=== PATIENT | female | born 1960 | race Caucasian/White ===

== ENCOUNTER 2018-11-15 20:44 | Emergency (ER) | payer OTHER, MEDICAID ==
[~2018-11-15] VITALS: Ht 165.1 cm; Wt 113.4 kg
[2018-11-15 22:50] LABS: Basophils # (auto) 0.1 uL; Basophils % (auto) 0.8 % (0.0-2.0); Eosinophils # (auto) 0.3 uL; Hematocrit 40.8 % (36.0-46.0); Hemoglobin 13.7 g/dL (12.2-16.2); Lymphocytes # (auto) 1.9 uL; Lymphocytes % (auto) 21.7 % (10.0-50.0); Mean Corpuscular Hgb Conc. 33.4 g/dL (32.0-36.0); Mean Corpuscular Volume 89.7 fL (80.0-100.0); Monocytes # (auto) 0.6 uL; Monocytes % (auto) 7.1 % (0.0-12.0); Neutrophils % (auto) 67.4 % (37.0-80.0); Platelet Count (auto) 304 10^3/uL (140-450); Red Blood Cells 4.55 10^6/uL (4.0-5.20); Red Cell Distribution Width 15.9 % (11.8-14.3); White Blood Cell 8.9 10^3/uL (4.4-10.8)
[2018-11-15 22:59] LABS: Albumin 3.8 g/dL (3.4-5.0); BUN/Creatinine Ratio 19.3; Potassium 4.2 mmol/L (3.5-5.1)
[2018-11-15 23:01] LABS: Bilirubin, Total 0.4 mg/dL (0.2-1.0); Total Protein 7.2 g/dL (6.4-8.2)
[2018-11-16] MEDS ORDERED: SULFAMETHOX W/TRIMETH(800/160MG) DS TAB PO ONE (06:45)
[2018-11-16 06:47] VITALS: BP 132/77
== END 2018-11-16 06:58 | disposition home or self-care (01) ==
LOC: ER 20:59
DX: L03.115 Cellulitis of right lower limb (principal); M79.661 Pain in right lower leg; I10 Essential (primary) hypertension; E78.5 Hyperlipidemia, unspecified
CPT/HCPCS: 36415; 73590; 80053; 85025; 87040

== ENCOUNTER 2024-01-19 08:02 | Emergency (ER) | payer OTHER ==
[~2024-01-19] VITALS: Ht 165.1 cm; Wt 105.7 kg
[2024-01-19 08:57] VITALS: BP 132/72; PULSE 68; RESP 18; TEMP 98; O2SAT 97
[2024-01-19] MEDS ORDERED: IBUP-1455 PO (09:26)
--- NOTE | 2024-01-19 09:27 | ED.PDOC ---
Musculoskeletal HPI Comments 63-year-old female complaining of right shoulder pain for the last four months. States she went to her primary care doctor and was told she needed a CT scan. She went to go get the CT scan done but was denied because she did not have a valid ID. Patient states no significant trauma four months ago. Nothing makes it better, movement makes it worse. Chief Complaint: Upper Extremity Time Seen by MD: 09:05 Primary Care Provider: Debbie Reviewed Notes: Nurses Notes Allergies: Coded Allergies: Codeine (Verified Allergy, Unknown, 01/19/24) Information Source: Patient Mode of Arrival: Ambulatory Location: Right Extremity Location: Shoulder Past Medical History PAST MEDICAL HISTORY: High Lipids, HTN Surgical History: Denies all surgeries HAY STACKER History: No Pertinent HAY STACKER History Family History Family History: Family hx of DM, Family hx of heart alberto Social History Smoker: Non-Smoker Alcohol: Denies ETOH Use Drugs: Denies Drug Use Lives In: Home Constitutional: denies: chills, diaphoresis, fatigue, fever, malaise, sweats, weakness, others EENTM: denies: blurred vision, double vision, ear bleeding, ear discharge, ear drainage, ear pain, ear ringing, eye pain, eye redness, hearing loss, mouth pain, mouth swelling, nasal discharge, nose bleeding, nose congestion, nose pain, photophobia, tearing, throat pain, throat swelling, voice changes, others Respiratory: denies: cough, hemoptysis, orthopnea, SOB at rest, shortness of breath, SOB with excertion, stridor, wheezing, others Cardiovascular: denies: chest pain, dizzy spells, diaphoresis, Dyspnea on exertion, edema, irregular heart beat, left arm pain, lightheadedness, palpitations, PND, syncope, others Gastrointestinal: denies: abdomen distended, abdominal pain, blood streaked bowels, constipated, diarrhea, dysphagia, difficulty swallowing, hematemesis, melena, nausea, poor appetite, poor fluid intake, rectal bleeding, rectal pain, vomiting, others Genitourinary: denies: abnormal vagina bleeding, burning, dyspareunia, dysuria, flank pain, frequency, hematuria, incontinence, pain, , vagina discha rge, urgency, others Neurological: denies: dizziness, fainting, headache, left sided numbness, left sided weakness, numbness, paresthesia, pre-existing deficit, right sided numbness, right sided weakness, seizure, speech problems, tingling, tremors, weakness, others Musculoskeletal: reports: joint pain (Right shoulder); denies: back pain, gout, joint swelling, muscle pain, muscle stiffness, neck pain, others Integumetry: denies: bruises, change in color, change in hair/nails, dryness, laceration, lesions, lumps, rash, wounds, others Allergic/Immunocompromised: denies: Difficulty Healing, Frequent Infections, Hives, Itching, others Physical Exam General Appearance: No Apparent Distress, Normal HEENT: Normal ENT Inspection, Pharynx Normal, TMs Normal Neck: Full Range of Motion, Non-Tender, Normal, Normal Inspection Respiratory: Chest Non-Tender, Lungs Clear, No Accessory Muscle Use, No Respiratory Distress, Normal Breath Sounds Cardiovascular: No Edema, No JVD, No Murmur, No Gallop, Normal Peripheral Pulses, Regular Rate/Rhythm Breast Exam: Deferred Gastrointestinal: No Organomegaly, Non Tender, No Pulsatile Mass, Normal Bowel Sounds, Soft Genitalia: Deferred Pelvic: Deferred Rectal: Deferred Extremities: No calf tenderness, Normal capillary refill, No pedal edema Musculoskeletal : Location: Right Extremity Location: Shoulder (Tender to palpation over the anterior and posterior deltoid. Limited range of motion of the right shoulder due to pain. No obvious crepitus noted.) Apperance: Normal Neurologic: Alert, animal trainer II-XII nml as Tested, No Motor Deficits, Normal Affect, Normal Mood, No Sensory Deficits Cerebellar Function: Normal Reflexes: Normal Skin: Dry, Normal Color, Warm Lymphatic: No Adenopathy Was a procedure done? Was a procedure done?: No Differential Diagnosis EXT Differential Diagnosis: Cellulitis, Fracture, Dislocation, Gout, Rheumatoid X-Ray, Labs, Meds, VS Vital Signs Date Time Temp Pulse Resp B/P (MAP) Pulse Ox O2 Delivery O2 Flow Rate FiO2 01/19/24 08:57 68 18 97 Room Air 01/19/24 08:57 98.0 68 18 132/72 (92) 97 98.0 01/19/24 08:28 98.0 68 18 132/72 (92) 97 X-Ray, Labs, Meds, VS Comment Imaging: X-rays and CT scans were reviewed and interpreted by this provider, imaging shows no fractures and no pathological disease. Pending radiology review. Laboratory: Labs reviewed and interpreted by this provider. No significant abnormalities noted. Patient has prior medical visits reviewed. Med reconciliation performed Vital signs reviewed Patient advised she was follow up with the PCP for contract specialist referral. Patient verbalized understanding. Patient was sent home with ibuprofen 800 for pain relief. Time of 1ST Reevaluation: 09:26 Reevaluation 1ST: Improved Patient Education/Counseling: Diagnosis, Treatment, Need For Follow Up (Patient advised to follow-up in the emergency room in the next 24 to 48 hours if symptoms do not improve. Advised follow-up with PCP in the next 3 to 5 days. Patient verbalized understanding. ) Family Education/Counseling: Diagnosis Departure 1 Departure Time of Disposition: 09:25 Impression: Primary Impression: Arthralgia Qualified Codes: M25.511 - Pain in right shoulder Additional Impression: Right shoulder pain Qualified Codes: M25.511 - Pain in right shoulder; G89.29 - Other chronic pain Disposition: 01 HOME / SELF CARE / HOMELESS Condition: Fair e-Prescriptions Ibuprofen Micronized (Ibuprofen) 800 Mg Tab 800 MG PO TID PRN, #40 TAB Prov: BHAVIN KRAUS 01/19/24 Discharged With: Self Critical Care Note Critical Care Time?: No Stability Stability form required: No Heart Score Heart Score: Heart Score Response (Comments) Value History N/A 0 EKG N/A 0 Age N/A 0 Risk Factors N/A 0 Troponin N/A 0 Total 0 BHAVIN KRAUS Jan 19, 2024 09:27
[2024-01-19] MEDS: KETOROLAC TROMETH 30 MG/ML 1ML VIAL IM ONE (09:40)
[2024-01-19] MEDS: methylPREDNISolone SOD SUCC 125 MG/2 ML VL IM ONE (09:41)
== END 2024-01-19 09:52 | disposition home or self-care (01) ==
LOC: ER 08:02
DX: M25.511 Pain in right shoulder (principal); I10 Essential (primary) hypertension; Z88.5 Allergy status to narcotic agent
CPT/HCPCS: 96372; 99284; J1885; J2919